=== PATIENT | female | born 1985 | race Caucasian/White ===

== ENCOUNTER → 2019-01-03 | Emergency (ER) | payer BC ==
[~2019-01-03] VITALS: Ht 157.5 cm; Wt 79.5 kg
[~2019-01-03] MED LIST: ETHI1TAB26 PO; IBUP-1986 PO; METH-360 PO
[2019-01-03 10:31] LABS: BASOPHILS % (AUTO) 0.3 % (0-1); EOSINOPHILS # (AUTO) 0.1 X10'3 (0-0.9); EOSINOPHILS % (AUTO) 0.7 % (0-6); HEMATOCRIT 45.8 % (35.0-45.0); HEMOGLOBIN 15.9 g/dl (12.0-16.0); LYMPHOCYTES # (AUTO) 1.7 X10'3 (1.1-4.8); LYMPHOCYTES % (AUTO) 13.4 % (21-51); MEAN CORPUSCULAR HEMOGLOBIN 30.2 PG (27.0-31.0); MEAN CORPUSCULAR HGB CONC 34.6 g/dL (33.0-36.5); MEAN CORPUSCULAR VOLUME 87.4 FL (78-98); MEAN PLATELET VOLUME 7.9 FL (7.4-10.4); MONOCYTES # (AUTO) 0.7 X10'3 (0-0.9); MONOCYTES % (AUTO) 5.7 % (2-12); NEUTROPHILS # (AUTO) 9.8 X10'3 (1.8-7.7); NEUTROPHILS % (AUTO) 79.9 % (42-75); PLATELET COUNT 282 X10'3 (140-440); RED BLOOD COUNT 5.24 X10'6 (4.20-5.60); RED CELL DISTRIBUTION WIDTH 13.1 % (11.5-14.5); WHITE BLOOD COUNT 12.3 X10'3 (4.5-11.0)
[2019-01-03 10:44] LABS: ALANINE AMINOTRANSFERASE 20 U/L (12-78); ALBUMIN 4.4 G/DL (3.4-5.0); ALBUMIN/GLOBULIN RATIO 1.3 (1.1-1.5); ALKALINE PHOSPHATASE 68 IU/L (46-116); ANION GAP 8 (8-16); ASPARTATE AMINO TRANSFERASE 13 U/L (10-37); BLOOD UREA NITROGEN 17 MG/DL (7-18); BUN/CREATININE RATIO 19.3 (6.6-38.0); CALCIUM 9.3 MG/DL (8.5-10.1); CHLORIDE 104 MMOL/L (99-107); CREATININE 0.88 MG/DL (0.40-0.90); GLUCOSE 121 MG/DL (70-104); POTASSIUM 3.9 MMOL/L (3.5-5.1); SODIUM 138 MMOL/L (135-145); TOTAL CARBON DIOXIDE 26.2 MMOL/L (24-32); TOTAL PROTEIN 7.8 G/DL (6.4-8.2); eGFR 74 ML/MIN
[2019-01-03 10:52] LABS: URINE HCG NEGATIVE (NEG)
[2019-01-03 11:39] LABS: CLARITY,URINE SLIGHTLY CLOUDY (Clear); GLUCOSE, URINE NEGATIVE (Neg); KETONES,URINE TRACE mg/dl (Neg); LEUKOCYTE ESTERASE ,URINE NEGATIVE (Neg); NITRITES, URINE NEGATIVE (Neg); OCCULT BLOOD,URINE MODERATE (Neg); PH,URINE 5.5 (4.8-8.0); PROTEIN,URINE NEGATIVE (Neg); UROBILINOGEN,URINE 0.2 E.U/dL (0.2-1.0)
[2019-01-03 12:04] LABS: UA COLLECTION TYPE CLN CATCH MIDSTREAM
[2019-01-03 12:06] LABS: COLOR,URINE DARK YELLOW (Yellow)
[2019-01-03 12:34] LABS: BACTERIA,URINE 1+ /HPF (Neg); HYALINE CASTS 0-3 /LPF (NEGATIVE); MUCUS STRANDS MANY /LPF (Neg); RBC,URINE NONE SEEN /HPF (0-2); SQUAMOUS EPITHELIAL CELL,UR MANY /LPF (FEW); WBC,URINE 0-4 /HPF (0-4)
--- NOTE | 2019-01-03 14:40 | NUR ---
BACK FROM CT SCAN IN STABLE CONDITION
[2019-01-03 16:04] VITALS: BP 110/65
== END | disposition home or self-care (01) ==
LOC: ER 10:10
DX: N83.201 Unspecified ovarian cyst, right side (principal); Z98.51 Tubal ligation status
CPT/HCPCS: 36415; 76856; 80053; 81001; 81025; 85025; 85610; 99284

== ENCOUNTER 2021-03-06 11:46 | Day surgery (SDC) | payer BC ==
[2021-02-28 14:05] LABS: BASOPHILS # (AUTO) 0.1 X10'3 (0-0.2); BASOPHILS % (AUTO) 0.6 % (0-1); EOSINOPHILS # (AUTO) 0.1 X10'3 (0-0.9); LYMPHOCYTES # (AUTO) 2.4 X10'3 (1.1-4.8); LYMPHOCYTES % (AUTO) 26.7 % (21-51); MEAN CORPUSCULAR HEMOGLOBIN 30.3 PG (27.0-31.0); MEAN CORPUSCULAR HGB CONC 34.3 g/dL (33.0-36.5); MEAN CORPUSCULAR VOLUME 88.3 FL (78-98); MEAN PLATELET VOLUME 8.1 FL (7.4-10.4); MONOCYTES # (AUTO) 0.6 X10'3 (0-0.9); MONOCYTES % (AUTO) 6.3 % (2-12); NEUTROPHILS % (AUTO) 65.4 % (42-75); PRE OP HEMATOCRIT 42.8 % (35.0-45.0); PRE OP HEMOGLOBIN 14.7 g/dL (12.0-16.0); PRE OP PLATELET COUNT 254 X10'3 (140-440); RED BLOOD COUNT 4.85 X10'6 (4.20-5.60); RED CELL DISTRIBUTION WIDTH 12.5 % (11.5-14.5)
[2021-02-28 14:18] LABS: ALBUMIN 3.8 G/DL (3.4-5.0); ALBUMIN/GLOBULIN RATIO 1.1 (1.1-1.5); ALKALINE PHOSPHATASE 60 IU/L (46-116); BLOOD UREA NITROGEN 12 MG/DL (7-18); BUN/CREATININE RATIO 15.4 (6.6-38.0); CALCIUM 8.7 MG/DL (8.5-10.1); CHLORIDE 106 MMOL/L (99-107); CREATININE 0.78 MG/DL (0.40-0.90); PRE OP ALT 40 U/L (30-65); PRE OP ANION GAP 9 (8-16); PRE OP AST 22 U/L (10-37); PRE OP BILIRUB, TOTAL 0.7 MG/DL (0.0-1.0); PRE OP GLUCOSE 90 MG/DL (70-104); PRE OP POTASSIUM 3.9 MMOL/L (3.4-5.1); PRE OP SODIUM 141 MMOL/L (135-145); TOTAL CARBON DIOXIDE 26.4 MMOL/L (24-32); TOTAL PROTEIN 7.3 G/DL (6.4-8.2); eGFR 84 ML/MIN
[~2021-03-06] VITALS: Ht 157.5 cm; Wt 74.8 kg
[~2021-03-06 11:46] MED LIST changes: +BACL10TA2 PO; -ETHI1TAB26 PO; +ETHI1TAB31 PO; +LORA10TA65 PO; -METH-360 PO; +albuterol 2.5 MG/3 ML nebule NEB ONE; +cefazolin/dext.iso 2gm/100ml IV ONE; +famotidine 20mg tablet PO ONE; +ringers solution, lacted 1,000 ML IV SCH; +vancomycin 1,500 MG in NS 300ml IV soln IV ONE
[2021-03-06 12:10] VITALS: BP 114/69
[2021-03-06] MEDS ORDERED: ROPIVAcaine 0.5% (5mg/ml) 30ml vial ONE (13:37)
[2021-03-06] MEDS ORDERED: MIDAZolam 1 MG/ML 5ML VIAL ONE (13:37)
[2021-03-06] MEDS ORDERED: fentaNYL/PF 50MCG/1 ML 2ML syringe ONE (13:37)
[2021-03-06] MEDS ORDERED: propofol inj 20 ML IV ONE (13:39)
[2021-03-06] MEDS ORDERED: BUPIVAcaine/PF 2.5 mg/ml (0.25%) 30ml vial ONE (13:41)
[2021-03-06] MEDS ORDERED: ondansetron/PF 4mg/2ml inj ONE (13:47)
[2021-03-06] MEDS ORDERED: dexamethasone sod phosphate 10mg/ml inj ONE (13:47)
[2021-03-06] MEDS ORDERED: sevoflurane 250ml liquid IH ONE (13:47)
[2021-03-06] MEDS ORDERED: LIDOcaine 1%/PF 5ML 10 MG/ML VIAL ONE (13:47)
[2021-03-06] MEDS ORDERED: triamcinolone acetonide 40mg/ml inj ONE (13:50)
[2021-03-06] MEDS ORDERED: ondansetron/PF 4mg/2ml inj IV PRN (13:55)
[2021-03-06] MEDS ORDERED: ringers solution, lacted 1,000 ML IV SCH (13:55)
[2021-03-06] MEDS ORDERED: meperidine/PF 25mg/ml syringe IV PRN ×3 (13:55)
[2021-03-06] MEDS ORDERED: proCHLORperazine 10 MG/2 ml inj IV PRN (13:55)
[2021-03-06] MEDS ORDERED: morphine 2 MG/ML inj. syringe IV PRN (13:55)
[2021-03-06] MEDS ORDERED: morphine 4 MG/ML inj SYRINge IV PRN (13:55)
[2021-03-06 15:40] VITALS: BP 122/77
--- NOTE | 2021-03-06 15:40 | NUR ---
Received from OR via [facility] , accompanied by Anesthesiologist ANKIT and report given by Anesthesiolgist. PATIENT WITH 20G PIV IN RIGHT HAND RUNNING LR AT 100. ANTERIOR LEFT SHOULDER DRESSING IS CDI. NO DRAINAGE. IN SLING. + RADIAL PULSE PRESENT. 10L MASK ON WITH 100% SATRUATIONS. Addendum: 03/06/21 at 1552 by Khadar Barrera RN, RN Amended: Links added.
[2021-03-06 15:50] VITALS: BP 128/79
[2021-03-06 16:00] VITALS: BP 116/73
[2021-03-06 16:10] VITALS: BP 110/75
[2021-03-06 16:20] VITALS: BP 110/74
--- NOTE | 2021-03-06 16:30 | NUR ---
ALL DISCHARGE CRITERIA HAS BEEN MET. VSS, PAIN AT A TOLERABLE LEVEL, VOIDING AND ABLE TO SAFELY AMBULATE AND TRANSFER SELF. IV TAKEN OUT WITHOUT ANY COMPLICATIONS. ALL DISCHARGE INSTRUCTIONS COVERED WITH PATIENT AND ALL QUESTIONS ANSWERED. PATIENT TAKEN OUT VIA WHEELCHAIR TO PERSONAL VEHICLE WHERE FAMILY/FRIEND DROVE PATIENT HOME. Addendum: 03/06/21 at 1652 by Khadar Barrera RN, RN Amended: Links added.
== END 2021-03-06 16:30 | disposition home or self-care (01) ==
LOC: PAS 11:46
PROVIDERS: ATTEND Orthopaedic Surgery
DX: M75.42 Impingement syndrome of left shoulder (principal); M19.012 Primary osteoarthritis, left shoulder; M25.512 Pain in left shoulder; G89.18 Other acute postprocedural pain; E66.8 Other obesity; Z68.30 Body mass index [BMI] 30.0-30.9, adult; F17.210 Nicotine dependence, cigarettes, uncomplicated; K21.9 Gastro-esophageal reflux disease without esophagitis; Z79.899 Other long term (current) drug therapy; Z98.890 Other specified postprocedural states; Z98.51 Tubal ligation status; Z20.822 Contact with and (suspected) exposure to COVID-19
CPT/HCPCS: 29823; 29824; 29826; 36415; 64415; 76942; 80053; 82948; 85025; 93005; J1100; J2250; J2405; J2704; J3010; J3301; J3370; J3490; J7040; U0003; U0005; A4215; A4565; A4618; A6250; A6449; A7000; J2795; J7120

== ENCOUNTER 2024-12-02 17:09 | Emergency (ER) | payer BC ==
[~2024-12-02] VITALS: Ht 157.5 cm; Wt 69.6 kg
[~2024-12-02 17:09] MED LIST changes: -albuterol 2.5 MG/3 ML nebule NEB ONE; -cefazolin/dext.iso 2gm/100ml IV ONE; -famotidine 20mg tablet PO ONE; -ringers solution, lacted 1,000 ML IV SCH; -vancomycin 1,500 MG in NS 300ml IV soln IV ONE
[2024-12-02 17:12] VITALS: BP 118/69; PULSE 82; RESP 16; TEMP 98.4; O2SAT 98
[2024-12-02] MEDS ORDERED: BETAMETHASONE VALERATE 0.1% TP ONE (17:40)
[2024-12-02] MEDS ORDERED: BETA15CR40 TOP (18:26)
[2024-12-02] MEDS: triamcinolone acet 0.1% cream 15gm TP ONE (18:28)
== END 2024-12-02 18:29 | disposition home or self-care (01) ==
LOC: ER 17:10
DX: L50.9 Urticaria, unspecified (principal); Z98.51 Tubal ligation status; Z79.899 Other long term (current) drug therapy
CPT/HCPCS: 99283